=== PATIENT | female | born 2000 | race Caucasian/White ===

== ENCOUNTER 2023-12-21 12:01 | Emergency (ER) | payer MEDICAID ==
[~2023-12-21] VITALS: Ht 162.6 cm; Wt 83.0 kg
[2023-12-21 12:54] VITALS: BP 120/77; PULSE 94; RESP 16; O2SAT 98
[2023-12-21 13:36] VITALS: TEMP 98.5
[2023-12-21] MEDS: ACETAMINOPHEN 325MG TABLET PO ONE (13:36)
[2023-12-21] MEDS ORDERED: CIPHCO EACH EAR (14:45)
== END 2023-12-21 15:15 | disposition home or self-care (01) ==
LOC: ER 12:01
DX: H60.92 Unspecified otitis externa, left ear (principal); R51.9 Headache, unspecified; M79.10 Myalgia, unspecified site
CPT/HCPCS: 99282; 99283